=== PATIENT | female | born 1950 | race African-American/Black ===

== ENCOUNTER 2020-07-26 05:27 | Observation (INO) | payer MEDICARE, MEDICAID ==
[2020-07-26] MEDS ORDERED: Senokot S 8.6-50 MG TAB PO PRN (05:56)
[2020-07-26] MEDS ORDERED: Acetaminophen 325 MG TAB PO PRN (05:56)
[2020-07-26] MEDS ORDERED: HYDROcodone/Acetaminophen 5/325 mg Tablet PO PRN (05:56)
[2020-07-26] MEDS ORDERED: Ondansetron PF 4 MG/2 ML Vial IVP PRN (05:56)
[2020-07-26] MEDS ORDERED: Calcium Carbonate 500 MG ChewTAB PO PRN (05:56)
[2020-07-26 05:58] VITALS: BMI 43.2
[2020-07-26] MEDS ORDERED: Ventolin HFA Inhaler 60 PUFF INHALER INH PRN (05:58)
[2020-07-26] MEDS: Potassium Chloride 20 MEQ TAB PO SCH ×2 (06:43→09:41)
[2020-07-26 07:27] LABS: Cardiac Risk 3.4 (Less than 4.5)
[2020-07-26] MEDS ORDERED: FEXOFENADINE PO SCH (09:00)
[2020-07-26] MEDS ORDERED: PSEUDOEPHEDRINE PO SCH (09:00)
[2020-07-26] MEDS: Cholecalciferol 1,000 UNITS (25 MCG) TAB PO SCH (09:41)
[2020-07-26] MEDS: Aspirin 81 mg Enteric Coated Tablet PO SCH (09:41)
[2020-07-26] MEDS: Enoxaparin Sodium 40 MG/0.4 ML SYRINGE SC SCH (09:41)
[2020-07-26] MEDS ORDERED: Nitroglycerin 0.4 MG TAB (25 Tab Bottle) SL PRN (10:17)
[2020-07-26] MEDS: Topiramate 100 MG TAB PO SCH (11:03)
[2020-07-26] MEDS ORDERED: Amlodipine 10 MG TAB PO SCH (19:30)
[2020-07-26 20:56] LABS: SARS-CoV-2 PCR by NAA Not Detected (NotDetected)
[2020-07-26] MEDS ORDERED: Atorvastatin Calcium 10 MG TAB PO SCH (21:00)
[2020-07-26] MEDS ORDERED: Montelukast Sodium 10 mg Tablet PO SCH (21:00)
[2020-07-27] MEDS: Enoxaparin Sodium 40 MG/0.4 ML SYRINGE SC SCH (10:01)
[2020-07-27] MEDS: Aspirin 81 mg Enteric Coated Tablet PO SCH (10:01)
[2020-07-27] MEDS: Topiramate 100 MG TAB PO SCH (10:01)
[2020-07-27] MEDS: Cholecalciferol 1,000 UNITS (25 MCG) TAB PO SCH (10:01)
[2020-07-27 17:54] VITALS: BP 147/79; TEMP 98.9
== END 2020-07-27 19:45 | disposition home or self-care (01) ==
LOC: CSHTELE 05:27
PROVIDERS: ADMIT Student in an Organized Health Care Education/Training Program; ATTEND Internal Medicine
DX: R07.9 Chest pain, unspecified (principal); E78.5 Hyperlipidemia, unspecified; Z85.3 Personal history of malignant neoplasm of breast; M89.9 Disorder of bone, unspecified; I12.9 Hypertensive chronic kidney disease with stage 1 through stage 4 chronic kidney disease, or unspecified chronic kidney disease; N18.31 Chronic kidney disease, stage 3a; Z79.899 Other long term (current) drug therapy; Z90.49 Acquired absence of other specified parts of digestive tract; D63.8 Anemia in other chronic diseases classified elsewhere; D53.9 Nutritional anemia, unspecified; E87.6 Hypokalemia; Z20.822 Contact with and (suspected) exposure to COVID-19
CPT/HCPCS: 71045; 71275; 74174; 80053; 80061; 82607; 82746; 83036; 83690; 83880; 84484 ×3; 85025; 93005; 93306; 93970; 94760 ×2; 96372; G0378 ×2; U0003; U0005; 36415; 87635; 96374; J1650; J3010; Q9967